=== PATIENT | male | born 1950 | race Caucasian/White ===

== ENCOUNTER 2016-02-26 14:08 | Inpatient (IN) | payer MEDICARE, OTHER ==
--- NOTE | 2016-02-26 15:45 | ER Document Report ---
ED Medical Screen (RME) - General Chief Complaint: Weakness Stated Complaint: WEAKNESS Mode of Arrival: Wheelchair Information source: Patient, Relative Notes: Patient is complaining of decreased appetite and weakness that has been going on for the past 2 weeks but got worse over the past week. Endorses increased use of alcohol, last drink was last night. He denies any pain. Family endorses bowel incontinence, fatigue, decreased energy. Denies fever, chills, vomiting or urinary symptoms. He has not seen his regular doctor for this. He is taking his regular medications. TRAVEL OUTSIDE OF THE [place] IN LAST 30 DAYS: No - Related Data Allergies/Adverse Reactions: codeine Allergy (Verified 02/26/16 14:20) Review of Systems - Review of Systems Constitutional: See HPI Gastrointestinal: See HPI Physical Exam - Vital signs Vitals: Temp Pulse Resp BP 98.3 F 96 20 102/57 L 02/26/16 14:15 02/26/16 14:15 02/26/16 14:15 02/26/16 14:15 - Notes Notes: General: ill-appearing, generalized weak, cachectic. No respiratory distress. Course - Vital Signs Vital signs: Temp Pulse Resp BP Pulse Ox 98.3 F 96 20 102/57 L 02/26/16 14:15 02/26/16 14:15 02/26/16 14:15 02/26/16 14:15
[2016-02-26 16:40] LABS: APPEARANCE,URINE SLIGHTLY-CLOUDY; BILIRUBIN,URINE NEGATIVE (NEGATIVE); GLUCOSE, URINE NEGATIVE (NEGATIVE); KETONES,URINE NEGATIVE (NEGATIVE); LEUKOCYTE ESTERASE,URINE NEGATIVE (NEGATIVE); NITRITE,URINE NEGATIVE (NEGATIVE); PROTEIN,URINE 30 mg/dL (NEGATIVE); URINE SPECIFIC GRAVITY 1.023; UROBILINOGEN,URINE NEGATIVE mg/dL (<2.0)
[2016-02-26 16:41] LABS: HEMOGLOBIN 10.5 g/dL (13.5-17.0); HGB HCT DIFFERENCE 0.5; MEAN CORPUSCULAR HEMOGLOBIN 33.3 pg (27.0-33.4); MEAN CORPUSCULAR HGB CONC 33.9 g/dL (32.0-36.0); MEAN CORPUSCULAR VOLUME 98 fl (80-97); RED BLOOD COUNT 3.16 10^6/uL (4.35-5.55); RED CELL DISTRIBUTION WIDTH 13.1 % (11.5-14.0)
[2016-02-26 16:55] LABS: ALANINE AMINOTRANSFERASE 64 U/L (21-72); ALBUMIN 1.7 g/dL (3.5-5.0); ALKALINE PHOSPHATASE 191 U/L (38-126); ANION GAP 9 (5-19); ASPARTATE AMINO TRANSFERASE 80 U/L (17-59); BILIRUBIN,TOTAL 1.2 mg/dL (0.2-1.3); BLOOD UREA NITROGEN 13 mg/dL (7-20); CALCIUM 7.7 mg/dL (8.4-10.2); CARBON DIOXIDE 24 mmol/L (22-30); CHLORIDE 97 mmol/L (98-107); CREATININE RESULT 0.82 mg/dL (0.52-1.25); GLUCOSE 73 mg/dL (75-110); LIPASE 24.6 U/L (23-300); POTASSIUM 4.5 mmol/L (3.6-5.0); TOTAL PROTEIN 4.8 g/dL (6.3-8.2)
[2016-02-26 16:57] LABS: ALCOHOL < 10 mg/dL (NONE DETECTED)
[2016-02-26 17:30] LABS: BAND NEUTROPHILS % (MANUAL) 6 % (3-5); BASOPHILS % (MANUAL) 0 % (0-2); EOSINOPHILS % (MANUAL) 0 % (0-6); LYMPHOCYTES % (MANUAL) 4 % (13-45); TOTAL CELLS COUNTED 100
[2016-02-26 17:36] LABS: TARGET CELLS SLIGHT; TOXIC GRANULATION SLIGHT
[2016-02-26] MEDS ORDERED: NORMAL SALINE 1000 ML 1,000 ML IV ONE ×2 (19:41→20:45)
--- NOTE | 2016-02-26 19:44 | ER Document Report ---
ED General - General Chief Complaint: Weakness Stated Complaint: WEAKNESS Time seen by provider: 19:42 Mode of Arrival: Wheelchair Notes: Patient is a 65-year-old male that comes emergency department for chief complaint of weakness, vomiting every time he eats with generalized pain in the abdomen, white states he is so weak he cannot stand up in the shower without assistance, patient has been worsening for weeks but is much worse since yesterday, patient states over the past 6 months has lost 50 pounds. Patient drinks regular alcohol, mainly wine. Patient states he is cold all the time, unsure if he is having fevers, reports some coughing which is nonproductive. Patient smokes tobacco irregularly. Past medical history is limited including hypertension, gastritis with Zantac use, and distant hernia repair. TRAVEL OUTSIDE OF THE [place] IN LAST 30 DAYS: No - Related Data Allergies/Adverse Reactions: aspirin Adverse Reaction (Verified 02/26/16 23:43) GI distress codeine Adverse Reaction (Verified 02/26/16 23:43) Syncope Home Medications: Current Home Medications Bisoprolol Fumarate/Hctz [Bisoprolol-Hctz 10-6.25 mg Tab] 1 tab PO DAILY [History] Ranitidine HCl 1 tab PO BID 02/27/16 [History] Past Medical History - General Information source: Patient, Relative - Social History Smoking Status: Current Every Day Smoker Frequency of alcohol use: Heavy Lives with: Family Family History: Reviewed & Not Pertinent - Past Medical History Cardiac Medical History: Reports: Hx Hypertension GI Medical History: Reports: Hx Gastritis Review of Systems - Review of Systems Constitutional: See HPI EENT: No symptoms reported Cardiovascular: No symptoms reported Respiratory: See HPI Gastrointestinal: See HPI Genitourinary: No symptoms reported Male Genitourinary: No symptoms reported Musculoskeletal: No symptoms reported Skin: No symptoms reported Hematologic/Lymphatic: No symptoms reported Neurological/Psychological: See HPI Physical Exam - Vital signs Vitals: Temp Pulse Resp BP 98.3 F 96 20 102/57 L 02/26/16 14:15 02/26/16 14:15 02/26/16 14:15 02/26/16 14:15 Interpretation: Normal - General General appearance: Other - Patient thin, somewhat chronically ill-appearing - HEENT Head: Normocephalic, Atraumatic Eyes: Normal Conjunctiva: Normal Extraocular movements intact: Yes Eyelashes: Normal Pupils: PERRL Mucous membranes: Dry Pharynx: Normal - Respiratory Respiratory status: No respiratory distress Chest status: Nontender Breath sounds: Decreased air movement, Nonproductive cough, Other - Coarse breath sounds and a few rhonchi bilaterally - Cardiovascular Rhythm: Regular. No: Tachycardia Heart sounds: Normal auscultation, S1 appreciated, S2 appreciated Murmur: No - Abdominal Inspection: Normal Distension: No distension Bowel sounds: Normal Tenderness: Tender - Very mild generalized tenderness, nonspecific with no guarding Organomegaly: No organomegaly - Back Back: Normal, Nontender - Extremities General upper extremity: Normal inspection, Nontender, Normal color, Normal ROM , Normal temperature General lower extremity: Normal inspection, Nontender, Normal color, Normal ROM , Normal temperature, Normal weight bearing. No: Monet's sign - Neurological Neuro grossly intact: Yes Cognition: Normal Orientation: AAOx4 [place] Coma Scale Eye Opening: Spontaneous [place] Coma Scale Verbal: Oriented Mark[place] Coma Scale Motor: Obeys Commands Markus Coma Scale Total: 15 Speech: Normal Motor strength normal: LUE, RUE, LLE, RLE Sensory: Normal - Psychological Associated symptoms: Normal affect, Normal mood - Skin Skin Temperature: Warm Skin Moisture: Dry Skin Color: Normal Course - Re-evaluation Re-evalutation: Patient generally unwell appearing, mildly hypotensive, coarse breath sounds with coughing, chief complaint is weakness. Patient also complains of difficulty with eating, states he frequently vomits after eating, states suspect this is gastritis related secondary to alcohol abuse, abdomen is unremarkable on examination, LFTs and lipase are unremarkable, bilirubin is unremarkable. Leukocytosis at 20.3 with elevation of neutrophils and 6 bands. Chest x-ray is suggestive of pneumonia. Patient was given 2 L boluses of saline, started azithromycin and Rocephin. Lactic acid, venous blood gas both unremarkable, blood cultures pending. Discussed with Dr. Taylor, patient will be admitted to [facility]. - Vital Signs Vital signs: Temp Pulse Resp BP Pulse Ox 98.4 F 104 H 18 94/59 L 91 L 02/27/16 03:33 02/27/16 03:33 02/27/16 03:33 02/27/16 03:33 02/27/16 03:33 - Laboratory Result Diagrams: 02/26/16 16:11 01/02/17 16:11 Laboratory results interpreted by me: 02/26/16 02/26/16 02/26/16 15:56 16:11 16:11 WBC 20.0 H RBC 3.16 L Hgb 10.5 L Hct 31.0 L MCV 98 H Seg Neuts % (Manual) 89 H Band Neutrophils % 6 H Lymphocytes % (Manual) 4 L Monocytes % (Manual) 0 L Abs Neuts (Manual) 19.0 H Abs Monocytes (Manual) 0.0 L Sodium 130.0 L Chloride 97 L Glucose 73 L Calcium 7.7 L AST 80 H Alkaline Phosphatase 191 H Creatine Kinase Total Protein 4.8 L Albumin 1.7 L Urine Protein 30 H Urine Blood LARGE H 02/26/16 21:29 WBC RBC Hgb Hct MCV Seg Neuts % (Manual) Band Neutrophils % Lymphocytes % (Manual) Monocytes % (Manual) Abs Neuts (Manual) Abs Monocytes (Manual) Sodium Chloride Glucose Calcium AST Alkaline Phosphatase Creatine Kinase 41 L Total Protein Albumin Urine Protein Urine Blood Discharge - Discharge Clinical Impression: Weakness, Cough Leukocytosis Qualifiers: Leukocytosis type: unspecified Qualified Code(s): D72.829 - Elevated white blood cell count, unspecified Pneumonia Qualifiers: Pneumonia type: due to unspecified organism Laterality: unspecified laterality Lung location: unspecified part of lung Qualified Code(s): J18.9 - Pneumonia, unspecified organism Disposition: ADMITTED INPATIENT Admitting Provider: Hospitalist - Dr. Taylor Unit Admitted: [facility]
[2016-02-26] MEDS ORDERED: AZITHROMYCIN INJ 500 MG VIAL IV ONE (21:05)
[2016-02-26] MEDS ORDERED: CEFTRIAXONE 1 GM/D5W RTU 50 ML IV ONE (21:05)
[2016-02-26 21:48] LABS: VENOUS BLOOD BASE EXCESS -1.2 mmol/L; VENOUS BLOOD HCO3 23.3 mmol/L (20-32); VENOUS BLOOD PCO2 38.4 mmHg (35-63); VENOUS BLOOD PH 7.4 (7.30-7.42)
[2016-02-26 22:08] LABS: LIPASE 26.9 U/L (23-300)
[2016-02-26 22:19] LABS: CREATINE KINASE MB 0.69 ng/mL (<4.55)
[2016-02-26 22:20] LABS: TROPONIN I < 0.012 ng/mL
[2016-02-26] MEDS ORDERED: THIAMINE HCL 100 MG TABLET PO ONE (23:00)
[2016-02-26] MEDS ORDERED: NICOTINE 21 MG/24 HR PATCH.TD24 TD PRN (23:30)
[2016-02-26] MEDS ORDERED: GUAIFENESIN SYRP 200 MG/10 ML UDC PO PRN (23:31)
[2016-02-26] MEDS ORDERED: IPRATROPIUM/ALBUTEROL 0.5-2.5 MG/3 ML AMPUL NEB PRN (23:31)
[2016-02-26] MEDS ORDERED: ACETAMINOPHEN 325 MG TABLET PO PRN (23:36)
--- NOTE | 2016-02-26 23:55 | PDOC H&P ---
History of Present Illness Admission Date/PCP: 02/26/16 22:30 Eloy BARRON Medical Patient complains of: weakness, cough History of Present Illness: TRE THORPE is a 65 year old male, pack-a-day smoker, marijuana use most days, six-pack of beer most days, along with approximately 1 bottle of wine most days, but without known underlying chronic pulmonary disease, who presents to the emergency room for evaluation of above complaints. . Patient has been discussed with emergency room physician who evaluated the patient. Patient describes a several day history of slowly progressive generalized weakness, nausea with dry heaves and positive chills, although no fever per se. Also describes a persistent cough whenever he lies flat. Some abdominal discomfort, but not a lot. Weakness has progressed to the point where he cannot stand up in the shower without assistance. No ankle swelling. No history of congestive heart failure. No previous [place], pulmonary embolus, or DVT. Negative heart catheterization approximately 5 years ago at [facility], per patient. Denies diarrhea or dysuria. Describes an unintentional 50 pound weight loss over the past 6 months. Laboratory results are listed in [employer] and are reviewed. X-ray summary results are listed below, with full report(s) reviewed. . EKG reviewed . No old EKG available for comparison. Social history/personal habits: Single. No children. Retired. Has a female significant other, his roommate, Patti Castillo, who is at his side with his approval, along with a female alternative medicine practitioner of hers. Personal habits as noted above. Family History : Brother with prostate cancer. Father of alcoholism. Mother of Alzheimer's disease. Allergies/adverse reactions are listed in [employer] and are reviewed. Home medications are reviewed by bottle review and discussion with patient and are to be reconciled by nursing staff in [facility]. Currently his only chronic medication is Bisoprolol HCT 5-6.25, 1 a day. Home medications initially autopopulated into [employer] may not accurately reflect patient's true medications, dosages, and/or frequencies. Compliant with medications. REVIEW OF SYSTEMS: Constitutional: Subjective chills. Eyes: No current vision complaints. ENT: No swallowing problems or complaints. No hearing problems or complaints. Pulmonary: See history and present illness. Cardiovascular: No current complaints, including chest pain. Gastrointestinal: See history and present illness. Skin: No current complaints, including rashes. Hematologic: Easy bruising. Neurologic: No current complaints, including numbness or tingling. Musculoskeletal: No current complaints, including painful joints. Psychiatric: No current complaints, including anxiety or depression. Endocrine: No current complaints, including polyuria. Genitourinary: No current complaints, including dysuria. PHYSICAL EXAMINATION: 51.7 kg. Height is not recorded on the chart. Blood pressure 100/67. Pulse 91 and regular. 96% saturation on room air. Respirations are 18 and unlabored. Temperature 98.3. Thin almost emaciated somewhat chronically ill-appearing male who appears a number of years older than his stated age. Pleasant awake alert and cooperative. No obvious distress other than somewhat anxious. Skin is warm and dry. No grossly obvious evidence of rash in areas of skin examined. No subcutaneous nodules palpated. ENT: Hearing grossly normal to normal conversation. Tongue midline on protrusion pink and slightly tacky Eyes: No scleral icterus. Pupils equal and reactive to light at 4 mm. Eland conjunctivae. Neck is supple and nontender to gentle active range of motion and palpation. Midline trachea. No palpable thyroid nodule mass enlargement or tenderness. Lymphatic: No palpable cervical or clavicular nodes. Psychiatric: Fair to reasonable insight into acute and chronic medical issues. Oriented to time location and why here. Lungs: Auscultation reveals clear and equal breath sounds bilaterally. No use of accessory respiratory muscles. Cardiovascular: Heart regular rate and rhythm, without gallop murmur or rub. No carotid or abdominal aortic bruits. No ankle or pedal edema. Faintly palpable dorsalis pedis pulses. Abdomen: soft, , perhaps slightly distended nontender with positive bowel sounds. What feels to be moderate-sized area of right upper quadrant fullness to palpation. Unable to adequately examine remainder of abdomen for masses organomegaly due to his distention. Extremities: Feet are warm and dry. No calf tenderness to compression. No grossly obvious visual evidence of calf swelling. Gentle manipulation of lower extremities fails to reveal any obvious evidence of injury or instability to knees hips or ankles. Neurologic: Moves upper extremities grossly normally. Patellar reflexes absent. Absent Babinski. Light touch is intact at feet. Dorsiflexion and plantarflexion of feet 5 / 5 and symmetric. Past Medical History Cardiac Medical History: Reports: Hypertension Denies: Congestive Heart Failure, DVT, Myocardial Infarction, Hyperlipidema, Pulmonary Embolism Pulmonary Medical History: Denies: Asthma, Chronic Obstructive Pulmonary Disease (COPD) EENT Medical History: Denies: Eyes, Ears, Throat Endocrine Medical History: Denies: Diabetes Mellitus Type 1, Diabetes Mellitus Type 2, Hyperthyroidism, Hypothyroidism Renal/ Medical History: Reports: None Musculoskeltal Medical History: Denies: Arthritis Skin Medical History: Reports: None Denies: Eczema, Psoriasis Psychiatric Medical History: Reports: Alcohol Dependency, Substance Abuse, Tobacco Dependency Denies: Depression, General Anxiety Disorder Hematology: Reports: Other - Easy bruising Infectious Medical History: Denies: Hepatitis B, Hepatitis C Past Surgical History Past Surgical History: Reports: Appendectomy, Herniorrhaphy Social History Information Source: Patient, Friend, Emergency Med Personnel, [facility] Records Lives with: Spouse/Significant other Smoking Status: Current Every Day Smoker Frequency of Alcohol Use: Heavy Drugs: Marijuana - Advance Directive Resuscitation Status: Full Code Surrogate healthcare decision maker:: His roommate Patti Castillo Family History Parental Family History Reviewed: Yes Children Family History Reviewed: NA Sibling(s) Family History Reviewed.: Yes Medication/Allergy Home Medications: Bisoprolol Fumarate/Hctz [Bisoprolol-Hctz 10-6.25 mg Tab] PO DAILY 02/27/16 Levofloxacin [Levaquin 750 mg Tablet] 750 mg PO DAILY #8 tab 02/27/16 RX: Multivitamin [Tab-A-Max (Multiple Vitamin) Tablet] 1 tab PO DAILY #30 tablet 02/27/16 RX: Ranitidine HCl 1 tab PO BID 02/27/16 RX: Thiamine HCl [Thiamine 100 mg Tablet] 100 mg PO DAILY #30 tablet 02/27/16 Allergies/Adverse Reactions: aspirin Adverse Reaction (Verified 02/26/16 23:43) GI distress codeine Adverse Reaction (Verified 02/26/16 23:43) Syncope Physical Exam Vital Signs: Temp Pulse Resp BP Pulse Ox 98.3 F 96 20 102/57 L 02/26/16 14:15 02/26/16 14:15 02/26/16 14:15 02/26/16 14:15 Results Impressions: Chest X-Ray 02/26/16 19:40 IMPRESSION: Increased airspace markings in the right medial lung base, possible early consolidation. Assessment & Plan - Diagnosis (1) Abdominal fullness in right upper quadrant Is this a current diagnosis for this admission?: YesPlan: Abdominal ultrasound. (2) Anemia Qualifiers: Anemia type: unspecified type Qualified Code(s): D64.9 - Anemia, unspecified Is this a current diagnosis for this admission?: YesPlan: Patient not aware he is anemic. Basic anemia screening labs. Stool for occult blood. (3) Elevated LFTs Is this a current diagnosis for this admission?: YesPlan: Likely due to his underlying alcohol abuse. Follow-up chemistry. (4) Hyponatremia Is this a current diagnosis for this admission?: YesPlan: Mild. Likely due to his underlying alcohol abuse. Follow-up chemistry. (5) RLL pneumonia Qualifiers: Pneumonia type: due to unspecified organism Qualified Code(s): J18.1 - Lobar pneumonia, unspecified organism Is this a current diagnosis for this admission?: YesPlan: Patient will be admitted under pneumonia protocol. Incentive spirometry twice a day. PRN DuoNeb's. Antibiotics will consist of intravenous Zithromax and Rocephin. No antibiotics or hospitalization in the last 3 months. I strongly encouraged patient to notify staff should patient feel that respiratory status is worsening. Patient is a full code. I have strongly encouraged patient not to get out of bed without notifying staff , , to avoid a fall with injury. Knee high SCDs for DVT prophylaxis, along with subcutaneous Lovenox Impression and plans were discussed with patient, who concurs. Time spent in evaluation and management of patient: 70 minutes. (6) Weakness Is this a current diagnosis for this admission?: YesPlan: Physical therapy consult. Strongly encouraged patient not to get out of bed without notifying staff to avoid a fall with injury. (7) Alcohol abuse Is this a current diagnosis for this admission?: YesPlan: Daily multivitamin, thiamine, and folic acid. Observe closely for signs of withdrawal. (8) HTN (hypertension) Qualifiers: Hypertension type: essential hypertension Qualified Code(s): I10 - Essential (primary) hypertension Is this a current diagnosis for this admission?: YesPlan: Resume home medications as appropriate once these have been reviewed. (9) Marijuana use Is this a current diagnosis for this admission?: Yes (10) Tobacco dependency Is this a current diagnosis for this admission?: YesPlan: When necessary nicotine patch. (11) Weight loss, non-intentional Is this a current diagnosis for this admission?: YesPlan: Dietary consult. Probably at least partially due to his underlying alcohol abuse. Concern also for possible malignancy. - Inpatient Certification Based on my medical assessment, after consideration of the patient's comorbidities, presenting symptoms, or acuity I expect that the services needed warrant INPATIENT care.: Yes I certify that my determination is in accordance with my understanding of Medicare's requirements for reasonable and necessary INPATIENT services [42 CFR 412.3e].: Yes Medical Necessity: Need Close Monitoring Due to Risk of Patient Decompensation, Need For Continuous Telemetry Monitoring, Need for Nebulizer Therapy and Monitoring of Response, Need for IV Antibiotics, Risk of Complication if Not Cared For in Hospital Post Hospital Care: D/C or Transfer Summary
--- NOTE | 2016-02-27 | EKG REPORT ---
SEVERITY:- ABNORMAL ECG - SINUS RHYTHM LOW VOLTAGE IN FRONTAL LEADS BORDERLINE R WAVE PROGRESSION, ANTERIOR LEADS NONSPECIFIC T ABNORMALITIES, LATERAL LEADS : Confirmed by: Rudy Mccall 26-Feb-2016 23:59:10
[2016-02-27 00:09] LABS: URINE BARBITURATES SCREEN NEGATIVE; URINE METHADONE SCREEN NEGATIVE; URINE PHENCYCLIDINE SCREEN NEGATIVE
[2016-02-27] MEDS ORDERED: INFLUENZA ADLT QUAD (36MOS+) 2016-17 VAC 0.5 ML SYR IM PRN (02:32)
[2016-02-27] MEDS ORDERED: LORAZEPAM 1 MG TABLET PO PRN (03:46)
[2016-02-27] MEDS ORDERED: NORMAL SALINE 1000 ML 500 ML IV ONE (05:41)
[2016-02-27 06:53] LABS: ABSOLUTE LYMPHOCYTES (AUTO) 0.9 10^3/uL (0.5-4.7); ABSOLUTE MONOCYTES (AUTO) 0.8 10^3/uL (0.1-1.4); ABSOLUTE NEUT (AUTO) 11.5 10^3/uL (1.7-8.2); BASOPHILS % (AUTO) 0.1 % (0-2); HEMATOCRIT 25.1 % (37.9-51.0); HEMOGLOBIN 8.6 g/dL (13.5-17.0); HGB HCT DIFFERENCE 0.7; LYMPHOCYTES % (AUTO) 6.7 % (13-45); MEAN CORPUSCULAR HEMOGLOBIN 33.4 pg (27.0-33.4); MEAN CORPUSCULAR HGB CONC 34.1 g/dL (32.0-36.0); MEAN CORPUSCULAR VOLUME 98 fl (80-97); MONOCYTES % (AUTO) 6.4 % (3-13); RED BLOOD COUNT 2.57 10^6/uL (4.35-5.55); RED CELL DISTRIBUTION WIDTH 13.1 % (11.5-14.0); SEGMENTED NEUTROPHILS % (AUTO) 86.8 % (42-78); WHITE BLOOD COUNT 13.2 10^3/uL (4.0-10.5)
[2016-02-27 07:00] LABS: PARTIAL THROMBOPLASTIN TIME 35.3 SEC (23.5-35.8); PROTHROMBIN TIME 17.1 SEC (11.4-15.4)
[2016-02-27 07:03] LABS: ALANINE AMINOTRANSFERASE 58 U/L (21-72); ALBUMIN 1.2 g/dL (3.5-5.0); ALKALINE PHOSPHATASE 137 U/L (38-126); ANION GAP 7 (5-19); ASPARTATE AMINO TRANSFERASE 66 U/L (17-59); BILIRUBIN,TOTAL 0.8 mg/dL (0.2-1.3); BLOOD UREA NITROGEN 13 mg/dL (7-20); CARBON DIOXIDE 22 mmol/L (22-30); CHLORIDE 102 mmol/L (98-107); CREATININE RESULT 0.75 mg/dL (0.52-1.25); GLUCOSE 62 mg/dL (75-110); POTASSIUM 3.6 mmol/L (3.6-5.0); SODIUM 130.9 mmol/L (137-145); TOTAL PROTEIN 3.7 g/dL (6.3-8.2)
[2016-02-27] MEDS ORDERED: ENOXAPARIN SODIUM INJ 40 MG/0.4 ML DISP.SYRIN SUBCUT SCH (08:00)
[2016-02-27 08:09] LABS: FOLATE 5.84 ng/mL (>2.76)
[2016-02-27 08:28] LABS: CALCIUM 6.6 mg/dL (8.4-10.2)
[2016-02-27 08:48] VITALS: BP 80/47
[2016-02-27] MEDS ORDERED: CALCIUM GLUCONATE 2,000 MG in DEXTROSE 5%-WATER 100 ML IV ONE (09:45)
[2016-02-27] MEDS ORDERED: CEFTRIAXONE 1 GM/D5W RTU 50 ML IV SCH (10:00)
[2016-02-27] MEDS ORDERED: AZITHROMYCIN 500 MG in DEXTROSE 5%-WATER 250 ML IV SCH ×2 (10:00→22:00)
[2016-02-27] MEDS ORDERED: MULTIVITAMIN TABLET PO SCH (10:00)
[2016-02-27] MEDS ORDERED: THIAMINE HCL 100 MG TABLET PO SCH (10:00)
[2016-02-27] MEDS ORDERED: FOLIC ACID 1 MG TABLET PO SCH (10:00)
--- NOTE | 2016-02-27 13:00 | PDOC DISCHARGE SUMMARY ---
General - Admit/Disc Date/PCP Admission Date/Primary Care Provider: 02/26/16 23:31 EMILY REAGAN Discharge Date: 02/27/16 - signs AMA - Discharge Diagnosis (1) Hypocalcemia Is this a current diagnosis for this admission?: YesSummary: Corrected with a serum albumen the patient's calcium was 8.8 Vitamin D level were ordered (2) Hypoalbuminemia due to protein-calorie malnutrition Is this a current diagnosis for this admission?: YesSummary: Hypoalbuminemia secondary to severe liver disease and protein calorie malnutrition (3) Chronic liver disease Is this a current diagnosis for this admission?: YesSummary: Secondary to chronic alcohol abuse Fatty liver was seen on ultrasound (4) Chronic alcohol abuse Is this a current diagnosis for this admission?: YesSummary: Patient did not withdraw during his short stay (5) Hematuria Is this a current diagnosis for this admission?: YesSummary: There was large blood on UA The etiology of hematuria is unclear (6) Anemia Is this a current diagnosis for this admission?: YesSummary: Anemia of chronic disease likely secondary to chronic liver disease and Anemia secondary to hematuria (7) RLL pneumonia Is this a current diagnosis for this admission?: YesSummary: Patient presented with leukocytosis in the right lower lobe infiltrate He was treated on admission with ceftriaxone and Zithromax - Additional Information Resuscitation Status: Full Code Home Medications: Bisoprolol Fumarate/Hctz [Bisoprolol-Hctz 10-6.25 mg Tab] PO DAILY 02/27/16 Levofloxacin [Levaquin 750 mg Tablet] 750 mg PO DAILY #8 tab 02/27/16 Multivitamin [Tab-A-Max (Multiple Vitamin) Tablet] 1 tab PO DAILY #30 tablet Ranitidine HCl 1 tab PO BID 02/27/16 Thiamine HCl [Thiamine 100 mg Tablet] 100 mg PO DAILY #30 tablet 02/27/16 History of Present Illness Patient complains of: cough weakness History of Present Illness: TRE THORPE is a 65 year old male pack-a-day smoker, marijuana use most days, six-pack of beer most days, along with approximately 1 bottle of wine most days, but without known underlying chronic pulmonary disease, who presents to the emergency room for evaluation of above complaints. Patient describes a several day history of slowly progressive generalized weakness, nausea with dry heaves and positive chills, although no fever per se. Also describes a persistent cough whenever he lies flat. Some abdominal discomfort, but not a lot. Weakness has progressed to the point where he cannot stand up in the shower without assistance. Describes an unintentional 50 pound weight loss over the past 6 months. Hospital Course Hospital Course: Patient was admitted overnight Next morning patient stated that he did not want to remain in the hospital and wished to go home Patient was advised to stay in the hospital for treatment of his anemia , chronic liver disease, pneumonia and severe hypoalbuminemia patient signs AMA Patient is alert , awake, oriented and competent to make his own decisions Patient was given prescriptions for Levaquin 750 mg by mouth daily, multivitamin one day, and thiamine 100 mg by mouth daily Physical Exam Vital Signs: Temp Pulse Resp BP Pulse Ox 99.2 F 92 20 80/47 L 97 02/27/16 07:36 02/27/16 07:36 02/27/16 07:36 02/27/16 07:36 02/27/16 07:36 Intake & Output 02/26/16 02/27/16 02/28/16 00:59 00:59 00:59 Intake Total 0 Output Total 0 Balance 0 Weight 55.5 kg General appearance: PRESENT: no acute distress, cooperative, thin, other - Under nourished looks chronically ill Head exam: PRESENT: atraumatic, normocephalic Eye exam: PRESENT: conjunctiva pale Neck exam: ABSENT: carotid bruit, JVD, lymphadenopathy, thyromegaly Respiratory exam: PRESENT: clear to auscultation toño. ABSENT: rales, rhonchi, wheezes Cardiovascular exam: PRESENT: RRR. ABSENT: diastolic murmur, rubs, systolic murmur Pulses: PRESENT: normal dorsalis pedis pul GI/Abdominal exam: PRESENT: normal bowel sounds, soft. ABSENT: distended, guarding, mass, organolmegaly, rebound, tenderness Extremities exam: ABSENT: calf tenderness, clubbing, full ROM, joint swelling, pedal edema, tenderness, +1 edema, +2 edema, other Musculoskeletal exam: ABSENT: ambulatory, deformity, dislocation, full ROM, normal inspection, tenderness, other Neurological exam: PRESENT: alert, awake, oriented to person, oriented to place , oriented to time, oriented to situation, CN II-XII grossly intact. ABSENT: motor sensory deficit Skin exam: PRESENT: dry, intact, warm. ABSENT: cyanosis, rash Results Laboratory Results: 02/27/16 06:10 02/27/16 06:10 02/27/16 02/27/16 02/27/16 06:10 06:10 06:10 WBC 13.2 H RBC 2.57 L Hgb 8.6 L Hct 25.1 L MCV 98 H MCH 33.4 MCHC 34.1 RDW 13.1 Plt Count 119 L Seg Neutrophils % 86.8 H Lymphocytes % 6.7 L Monocytes % 6.4 Eosinophils % 0.0 Basophils % 0.1 Absolute Neutrophils 11.5 H Absolute Lymphocytes 0.9 Absolute Monocytes 0.8 Absolute Eosinophils 0.0 Absolute Basophils 0.0 Retic Count (auto) 1.72 Absolute Retic 0.044 Sodium 130.9 L Potassium 3.6 Chloride 102 Carbon Dioxide 22 Anion Gap 7 BUN 13 Creatinine 0.75 Est GFR ( Amer) > 60 Est GFR (Non-Af Amer) > 60 Glucose 62 L Calcium 6.6 L* Iron 26 L TIBC 90 L % Saturation 29 Ferritin 1050.00 H Total Bilirubin 0.8 AST 66 H ALT 58 Alkaline Phosphatase 137 H Total Protein 3.7 L Albumin 1.2 L 1.2 L Vitamin B12 853.0 Folate 5.84 Impressions: Chest X-Ray 02/26/16 19:40 IMPRESSION: Increased airspace markings in the right medial lung base, possible early consolidation. Abdomen Ultrasound 02/27/16 00:00 IMPRESSION: Fatty liver Contracted gallbladder with gallstones. No gallbladder wall thickening or immediate pericholecystic fluid worrisome for cholecystitis Limited visualization of the spleen and left kidney Plan Discharge Plan: Signs AMA Time Spent: Less than 30 Minutes
[2016-02-28 07:11] LABS: VITAMIN D 25-HYDROXY 27.8 ng/mL (30.0-100.0)
[2016-02-28 13:54] LABS: VITAMIN D 1,25 DIHYDROXY 19.6 pg/mL (19.9-79.3)
== END 2016-02-27 13:30 | disposition left against medical advice (07) | DRG 640 ==
LOC: ER 14:08 → UNDOADMIN 22:30 → EH 22:30 → 5 02-27 01:50
PROVIDERS: ADMIT Family Medicine; ATTEND Family Medicine
DX: E83.51 Hypocalcemia (principal); J18.1 Lobar pneumonia, unspecified organism; E46 Unspecified protein-calorie malnutrition; E87.1 Hypo-osmolality and hyponatremia; Z68.1 Body mass index [BMI] 19.9 or less, adult; K70.0 Alcoholic fatty liver; F10.20 Alcohol dependence, uncomplicated; R31.9 Hematuria, unspecified; I10 Essential (primary) hypertension; D63.8 Anemia in other chronic diseases classified elsewhere; K80.20 Calculus of gallbladder without cholecystitis without obstruction; F17.210 Nicotine dependence, cigarettes, uncomplicated; F12.10 Cannabis abuse, uncomplicated; Z80.42 Family history of malignant neoplasm of prostate; Z81.1 Family history of alcohol abuse and dependence; Z82.0 Family history of epilepsy and other diseases of the nervous system; Y90.9 Presence of alcohol in blood, level not specified
CPT/HCPCS: 36415; 71020; 76700; 80053; 80307; 81001; 82040; 82306; 82550; 82553; 82607; 82652; 82728; 82746; 82803; 83540; 83550; 83605; 83690; 83735; 84443; 84466; 84484; 85025; 85045; 85610; 85730; 87040; 87070; 87077; 87186; 87205; 87804; 93005; 93010; 93976; 96365; 99285; J0456; J0610; J0696; J7030

== ENCOUNTER 2016-05-03 10:47 | Emergency (ER) | payer MEDICAID, MEDICARE ==
[2016-05-03] MEDS ORDERED: NORMAL SALINE 1000 ML 1,000 ML with POTASSIUM CHLORIDE 20 MEQ, MAGNESIUM SULFATE 8 MEQ,... IV PRN ×5 (11:19)
--- NOTE | 2016-05-03 11:41 | ER Document Report ---
ED General - General Chief Complaint: ETOH Abuse Stated Complaint: WEAKNESS Mode of Arrival: Medic Information source: Patient, Friend Notes: This is a 65-year-old male with a history of chronic alcoholism who presents with generalized weakness and desire for detox. His significant other states that he became so weak this morning that she had to help him ease down to the floor in the bathroom. He did not have a syncopal episode, he did not fall, and he did not hit his head. However he was so weak that she was unable to get him up off the floor until EMS was notified. The patient states that he is ready to seek help for his alcoholism. At this time he admits to drinking 1-2 quarts of wine per day. He has been drinking daily for over 25 years. He denies any history of alcohol withdrawal however he has never gone without alcohol for any significant amount of time and more than 20 years. Of note he was recently admitted to this facility February 25 for pneumonia at which time he signed out the next day AGAINST MEDICAL ADVICE. He continues to endorse daily cough with sputum production and generalized weakness. He denies any fevers. He has not had vomiting or dysuria. He does suffer from constipation and last bowel movement was 3 days ago. His last drink of alcohol was at about 5 AM this morning. TRAVEL OUTSIDE OF THE [place] IN LAST 30 DAYS: No - Related Data Allergies/Adverse Reactions: aspirin Adverse Reaction (Verified 05/03/16 11:26) GI distress codeine Adverse Reaction (Verified 05/03/16 11:26) Syncope Past Medical History - General Information source: Patient, Friend - Social History Smoking Status: Current Every Day Smoker Chew tobacco use (# tins/day): No Frequency of alcohol use: Heavy Drug Abuse: Marijuana Family History: Reviewed & Not Pertinent Patient has suicidal ideation: No Patient has homicidal ideation: No - Past Medical History Cardiac Medical History: Reports: Hx Hypertension Denies: Hx Congestive Heart Failure, Hx DVT, Hx Heart Attack, Hx Hypercholesterolemia, Hx Pulmonary Embolism Pulmonary Medical History: Reports: Hx Pneumonia Denies: Hx Asthma, Hx COPD Endocrine Medical History: Denies: Hx Diabetes Mellitus Type 1, Hx Diabetes Mellitus Type 2, Hx Hyperthyroidism, Hx Hypothyroidism Renal/ Medical History: Denies: Hx Peritoneal Dialysis GI Medical History: Reports: Hx Gastritis Musculoskeltal Medical History: Denies Hx Arthritis Skin Medical History: Denies Hx Eczema, Denies Hx Psoriasis Psychiatric Medical History: Denies: Hx Depression Past Surgical History: Reports: Hx Appendectomy, Hx Herniorrhaphy Review of Systems - Review of Systems Notes: REVIEW OF SYSTEMS: CONSTITUTIONAL : Denies fever, chills, or sweats. Significant weight loss over the past year. EENT: Denies eye, ear, throat, or mouth pain or symptoms. Denies nasal or sinus congestion. CARDIOVASCULAR: Denies chest pain. RESPIRATORY: Chronic cough. Denies shortness of breath, difficulty breathing, or wheezing. GASTROINTESTINAL: Denies abdominal pain. Denies nausea, vomiting, or diarrhea. Constipation as per history of present illness GENITOURINARY: Denies difficulty urinating, painful urination, burning, frequency, or blood in urine. MUSCULOSKELETAL: Denies neck or back pain or joint pain or swelling. SKIN: Rash to bilateral feet. HEMATOLOGIC : Endorses easy bruising LYMPHATIC: Denies swollen, enlarged glands. NEUROLOGICAL: Denies altered mental status or loss of consciousness. Denies headache. PSYCHIATRIC: Denies anxiety or stress or depression. ALL OTHER SYSTEMS REVIEWED AND NEGATIVE. Physical Exam - Vital signs Vitals: Temp Pulse Resp BP Pulse Ox 97.2 F 80 16 105/72 97 05/03/16 11:03 05/03/16 11:03 05/03/16 11:03 05/03/16 11:03 05/03/16 11:03 - Notes Notes: PHYSICAL EXAMINATION: GENERAL: Chronically ill appearing adult male. He is cachectic. He is conversant and in no acute distress at this time. HEAD: Atraumatic, normocephalic. EYES: Pupils equal round and reactive to light, extraocular movements intact, mild scleral icterus ENT: nares patent, oropharynx clear without exudates. Mucous membranes dry NECK: Normal range of motion, supple without lymphadenopathy LUNGS: Decreased breath sounds bilateral bases without wheezes or rales or rhonchi. HEART: Regular rate and rhythm without murmurs ABDOMEN: Soft, nontender, normoactive bowel sounds. No guarding, no rebound. Hepatomegaly. EXTREMITIES: Normal range of motion. 2+ pitting edema bilateral lower extremities which is symmetric. dusky appearance to toes bilaterally, worse on right, with line of erythematous demarcation to dorsal mid foot on right. Decreased sensation to bilateral feet. No pulses palpable to DP bilaterally. Faint R femoral pulse palpated. NEUROLOGICAL: Cranial nerves grossly intact. Normal speech. No gross focal motor or sensory deficits appreciated. PSYCH: Normal mood, flat affect. SKIN: Warm, Dry, multiple areas of bruising and ecchymosis on extremities. Course - Re-evaluation Re-evalutation: 05/03/16 14:31 Initial plan was to admit patient here for alcohol detox. Dr Nice was consulted for admission. Given the vascular changes in the lower extremities however, patient requires evaluation from vascular surgery which is not available here. Of note patient does state that these changes have been going on for at least the past week. This is not what prompted his visit today... As today his long-term girlfriend finally convinced him to get help for his alcoholism, which prompted his presentation to the ER after his fall today. Will obtain Doppler ultrasound and proceed with transfer. Patient and family comfortable with this plan. 05/03/16 15:05 I discussed the case with vascular surgeon at [facility]. We discussed the history and physical exam and at this time he agrees that this is more consistent with a chronic but worsening ischemia rather than any acute ischemic limb. Patient is having no rest pain. Ultrasound is pending. Also at this time our lab coagulation machine is down and we are unable to obtain a PT or INR. With the patient's history of alcoholism I have not started heparin on him without knowing his PT and INR. I discussed this with the vascular surgeon and he was in agreement at this time. We will proceed with discussing the case with the hospitalist at [facility] , proceed with ultrasound report, and proceed with transfer. 05/03/16 15:27 Discussed with , resident at [facility], who accepts patient to the PCU under Dr. Spain, once a bed becomes available. 05/03/16 16:28 Coag results are now available. PT and INR within normal limits. Heparin bolus and drip initiated. 05/03/16 18:[address] Lopez again regarding the ultrasound results. We discussed the heparin treatment and fact that a bed should be available at [facility]. We will proceed with transfer when bed becomes available. 05/03/16 21:46 Pt's bp continues to drop, currently 75/49 although pt has normal mentation. He has no current complaints other than feeling cold. No abdominal pain. No chest pain. Rectal exam done, light brown stool and no gross blood. Will place central line and start pressers if BP not responding to additional fluid bolus. Discussed with asphalt paving foreman at [facility] Dr. Nowak who recommends continued search for cause of hypotension and accepts transfer once bed does become available at [facility]> 05/03/16 22:57 R femoral vein cannulated on first attempt, but unable to thread wire, and then hematoma developed so pressure held for 10 minutes. Pressure responding to IV fluids with SBP 92. Will hold off on further attempts at central line at this point and continue IV bolus, with plan to start dopamine peripherally if needed. Awaiting CBC results to discuss with [facility] for transfer. 05/04/16 00:[address] Jarvis at [facility] again. No bed available tonight, and he recommends seeking transfer at another facility. Discussed with asphalt paving foreman Dr. Johnson at [facility]... we discussed exam, vitals, response to fluid resuscitation. He recommends one more liter of NS, pain meds , and to call him back. He recommends no Dopamine at this time. We discussed the fact that pt is demanding pain medication secondary to L inguinal pain, or he is threatening to leave. I will order Fentanyl 25 mcg IV given tenuous BP. 05/04/16 00:49 Pt now demanding to leave AMA. This has been his pattern in the past. He states that he is leaving, and he understands his risk of or loss of limb. He is not staying. I spent over 30 minutes discussing his results and diagnosis, and his need for IV fluid, antibiotics, and vascular surgery consult. He states that he is leaving and that there is no way that I can convince him to stay. I discussed the case with his girlfriend Ms Castillo (with patients permission) and she spoke with him via phone and urged him to stay for treatment. However, pt remains adamant that he is leaving. Multiple times he voices understanding of the very likely possibility of loss of limb and or loss of his life. He states that his girlfriend is the one that really wanted him to get help in the first place, and he has changed his mind. I attempted to convince him to stay for antibiotics and pain medication and then see how he felt, but he is adamant and states I cannot change his mind. He is alert and oriented x4 and is competent and has the capacity to make this decision for himself at this time. An AMA form was signed. - Vital Signs Vital signs: Temp Pulse Resp BP Pulse Ox 97.2 F 80 20 87/64 L 100 05/03/16 11:03 05/03/16 11:03 05/04/16 00:50 05/04/16 00:51 05/03/16 19:48 - Laboratory Result Diagrams: 05/03/16 22:57 05/03/16 11:45 Laboratory results interpreted by me: 05/03/16 05/03/16 05/03/16 11:45 11:45 22:57 WBC 13.0 H 15.7 H RBC 3.38 L 2.80 L Hgb 11.2 L 9.0 L D Hct 33.2 L 27.7 L MCV 98 H 99 H RDW 14.4 H 14.8 H Plt Count 123 L 95 L Seg Neutrophils % 91.1 H Seg Neuts % (Manual) 86 H Band Neutrophils % 10 H Lymphocytes % 5.2 L Lymphocytes % (Manual) 1 L Monocytes % 2.4 L Absolute Neutrophils 11.8 H Abs Neuts (Manual) 15.2 H Abs Lymphs (Manual) 0.0 L PT APTT Sodium 135.8 L Carbon Dioxide 21 L BUN 33 H Creatinine 1.56 H Est GFR ( Amer) 54 L Est GFR (Non-Af Amer) 45 L Glucose 116 H Lactic Acid Alkaline Phosphatase 162 H Total Protein 5.1 L Albumin 2.1 L 05/03/16 05/03/16 22:57 22:57 WBC RBC Hgb Hct MCV RDW Plt Count Seg Neutrophils % Seg Neuts % (Manual) Band Neutrophils % Lymphocytes % Lymphocytes % (Manual) Monocytes % Absolute Neutrophils Abs Neuts (Manual) Abs Lymphs (Manual) PT 20.2 H APTT > 134.0 H* D Sodium Carbon Dioxide BUN Creatinine Est GFR ( Amer) Est GFR (Non-Af Amer) Glucose Lactic Acid 4.2 H Alkaline Phosphatase Total Protein Albumin Procedures - Central Line R femoral Consent obtained: Yes Central line pre-insertion: Sterile PPE donned, Betadine prep applied, Chloraprep applied, Sterile drapes applied Central line size (Fr.): 7 Central line lumen type: Triple Anesthetic type: 1% Lidocaine mL's of anesthesia: 2 Ultrasound guided: No Number of attempts: 1 - hematoma developed, pressure held, hematoma resolved Complications: Yes - R femoral vein cannulated on first attempt, but unable to thread wire. Critical Care Note - Critical Care Note Total time excluding time spent on procedures (mins): 45 - minutes of critical care time spent in direct contact evaluating and reevaluating the patient, treating symptoms, reviewing labs and studies and speaking with family and consultants excluding any procedures Discharge - Discharge Clinical Impression: Chronic alcoholism, Weakness, Acute kidney injury, Ischemia of right lower extremity Condition: Serious Disposition: AGAINST MEDICAL ADVICE
[2016-05-03 12:13] LABS: ABSOLUTE BASOPHILS # (AUTO) 0.2 10^3/uL (0.0-0.2); ABSOLUTE LYMPHOCYTES (AUTO) 0.7 10^3/uL (0.5-4.7); ABSOLUTE MONOCYTES (AUTO) 0.3 10^3/uL (0.1-1.4); ABSOLUTE NEUT (AUTO) 11.8 10^3/uL (1.7-8.2); BASOPHILS % (AUTO) 1.3 % (0-2); HEMATOCRIT 33.2 % (37.9-51.0); HEMOGLOBIN 11.2 g/dL (13.5-17.0); HGB HCT DIFFERENCE 0.4; LYMPHOCYTES % (AUTO) 5.2 % (13-45); MEAN CORPUSCULAR HGB CONC 33.6 g/dL (32.0-36.0); MEAN CORPUSCULAR VOLUME 98 fl (80-97); MONOCYTES % (AUTO) 2.4 % (3-13); RED BLOOD COUNT 3.38 10^6/uL (4.35-5.55); RED CELL DISTRIBUTION WIDTH 14.4 % (11.5-14.0); SEGMENTED NEUTROPHILS % (AUTO) 91.1 % (42-78)
[2016-05-03 12:24] LABS: PARTIAL THROMBOPLASTIN TIME 26.6 SEC (23.5-35.8)
[2016-05-03 12:38] LABS: ALANINE AMINOTRANSFERASE 43 U/L (21-72); ALBUMIN 2.1 g/dL (3.5-5.0); ALKALINE PHOSPHATASE 162 U/L (38-126); ANION GAP 12 (5-19); ASPARTATE AMINO TRANSFERASE 42 U/L (17-59); BLOOD UREA NITROGEN 33 mg/dL (7-20); CALCIUM 8.4 mg/dL (8.4-10.2); CARBON DIOXIDE 21 mmol/L (22-30); CHLORIDE 103 mmol/L (98-107); CREATININE RESULT 1.56 mg/dL (0.52-1.25); GLUCOSE 116 mg/dL (75-110); LIPASE 24.6 U/L (23-300); POTASSIUM 4.1 mmol/L (3.6-5.0); SODIUM 135.8 mmol/L (137-145); TOTAL PROTEIN 5.1 g/dL (6.3-8.2)
[2016-05-03 12:40] LABS: ALCOHOL < 10 mg/dL (NONE DETECTED)
[2016-05-03 15:28] LABS: PROTHROMBIN TIME 14.9 SEC (11.4-15.4)
[2016-05-03] MEDS ORDERED: DEXTROSE 5%-1/2 NORMAL SALINE 1,000 ML IV ONE (15:41)
[2016-05-03] MEDS ORDERED: HEPARIN SOD (PORCINE) 1,000 UNIT/ML 10 ML VIAL IV ONE ×2 (16:25→16:26)
[2016-05-03] MEDS ORDERED: HEPARIN SODIUM,PORCINE/D5W 250 ML IV PRN (16:26)
[2016-05-03] MEDS ORDERED: NORMAL SALINE 1000 ML 1,000 ML IV ONE ×4 (16:40→23:02)
--- NOTE | 2016-05-03 17:36 | XCELERA REPORT ---
[address] [address] Lower Extremity Arterial Evaluation Name: TRE THORPE Age: 65 yrs Gender: Male : 1950 Patient Status: Emergency Patient Location: ER Study Date: 05/03/2016 03:06 PM Procedure: A color flow and duplex scan of the lower extremity arteries was performed bilaterally with velocity and waveform anaylsis. Reason For Study: limb ischemia R>L Ordering Physician: MYRIAM TREVINO Performed By: Josselin Brady Measurements and Calculations Right Left CIGAR MACHINE FEEDER PSV 68.4 39.0 cm/sec Prox PFA PSV -62.5 55.0 cm/sec Dist SFA PSV -13.6 -11.2 cm/sec Prox Pop A PSV 11.4 cm/sec Dist Pop A PSV -13.8 11.6 cm/sec Dist STEWART PSV 7.3 cm/sec Dist SURGEON/PRESIDENT PSV 7.9 cm/sec Chip Pedis PSV 17.1 cm/sec Right Side Arterial Evaluation Normal velocity, biphasic waveform in the Common Femoral artery Occluded Femoral. Monophasic flow in the Popliteal. No discernable flow in the infrageniculate vessels. The ankle-brachial index was not done. 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 With very severe sequential disease. DVT is present in the Popliteal vein. Left Side Arterial Evaluation Normal velocity, biphasic waveform in the Common Femoral artery Occluded Femoral. Monophasic flow to the infrageniculate vessels. The ankle-brachial index was not done. 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 Critical Findings Discussed with Dr Trevino at about 1630. The patient is being transferred for vascular care. Interpretation Summary Severe hemodynamically significant lesions in the bilateral lower extremities, on duplex imaging, at rest. Flow on the right is not discernable at the foot. There is Deep Venous thrombosis in the Popliteal ant Posterior Tibial veins. : MYRIAM TREVINO > Dariusz Walker
[2016-05-03 23:10] LABS: PROTHROMBIN TIME 20.2 SEC (11.4-15.4)
[2016-05-03 23:46] LABS: HEMATOCRIT 27.7 % (37.9-51.0); HGB HCT DIFFERENCE -0.7; MEAN CORPUSCULAR HEMOGLOBIN 32.3 pg (27.0-33.4); MEAN CORPUSCULAR HGB CONC 32.7 g/dL (32.0-36.0); MEAN CORPUSCULAR VOLUME 99 fl (80-97); RED CELL DISTRIBUTION WIDTH 14.8 % (11.5-14.0); WHITE BLOOD COUNT 15.7 10^3/uL (4.0-10.5)
[2016-05-03 23:52] LABS: BASOPHILS % (MANUAL) 0 % (0-2); EOSINOPHILS % (MANUAL) 0 % (0-6); TOTAL CELLS COUNTED 100
[2016-05-03 23:53] LABS: ANISOCYTOSIS SLIGHT; BAND NEUTROPHILS % (MANUAL) 10 % (3-5); BURR CELLS SLIGHT; LYMPHOCYTES % (MANUAL) 1 % (13-45); OVALOCYTES SLIGHT; POIKILOCYTOSIS SLIGHT; SCHISTOCYTES SLIGHT; TOXIC GRANULATION SLIGHT
[2016-05-03 23:55] LABS: PARTIAL THROMBOPLASTIN TIME > 134.0 SEC (23.5-35.8)
[2016-05-04] MEDS ORDERED: DOPAMINE HCL/DEXTROSE 5%-WATER 250 ML IV PRN (00:06)
[2016-05-04] MEDS ORDERED: FENTANYL CITRATE INJ/PF 100 MCG/2 ML AMPUL IV ONE (00:06)
[2016-05-04] MEDS ORDERED: CEFEPIME 2 GM/D5W RTU 50 ML IV ONE (00:23)
[2016-05-04] MEDS ORDERED: VANCOMYCIN HCL INJ 1000 MG VIAL IV ONE (00:24)
[2016-05-04 00:58] VITALS: BP 87/64
== END 2016-05-04 01:23 | disposition left against medical advice (07) ==
LOC: ER 10:47
PROC: 06HM33Z Insertion of Infusion Device into Right Femoral Vein, Percutaneous Approach (ICD-10-PCS; principal; 2016-05-03)
DX: F10.20 Alcohol dependence, uncomplicated (principal); N17.9 Acute kidney failure, unspecified; I99.8 Other disorder of circulatory system; I10 Essential (primary) hypertension; R53.1 Weakness; K59.00 Constipation, unspecified; F17.200 Nicotine dependence, unspecified, uncomplicated; Z88.6 Allergy status to analgesic agent
CPT/HCPCS: 36556; 99284; 99285; 96361; 96375; 96365 ×2; 96366 ×2; 96368; 36415 ×2; 87040; 80307; 82550; 83690; 83735 ×2; 85025 ×2; 85610 ×2; 85730 ×2; 82272; 80048; 80053; 81001; 83605; 93925 ×2; 71010; C1751; J1644 ×3; J0610; J1265; J3010; J7030

== ENCOUNTER 2016-05-04 03:34 | Emergency (ER) | payer MEDICARE ==
[2016-05-04] MEDS ORDERED: HEPARIN SODIUM,PORCINE/D5W 250 ML IV PRN (04:17)
[2016-05-04] MEDS ORDERED: DOPAMINE HCL/DEXTROSE 5%-WATER 250 ML IV PRN (04:19)
--- NOTE | 2016-05-04 04:25 | ER Document Report ---
ED General - General Chief Complaint: General Weakness Stated Complaint: FEVER Notes: Patient is a 65-year-old male who was just seen in the ER a few hours ago. He has ischemia to both lower extremities. His Coumadin to be transferred to [facility]. Patient left AMA despite being hypotensive and unwell appearing. Patient went to the hospital waiting room. He then checked back in because he is feeling worse. He now is agreeable to transfer. No new complaints. Upon triage patient is hypothermic however we are obtaining a rectal temp see if this is accurate being that the patient is not confused or altered vision would expect with a temp of 91.3. I suspect his temp was not correct. Patient is hypotensive. Patient does have history of alcoholism. His initial presenting complaints earlier today was of wanting help with alcoholism and weakness. He drinks proximal and one to 2 quarts of wine per day. He's been drinking for over 25 years. TRAVEL OUTSIDE OF THE [place] IN LAST 30 DAYS: No - Related Data Allergies/Adverse Reactions: aspirin Adverse Reaction (Verified 05/03/16 11:26) GI distress codeine Adverse Reaction (Verified 05/03/16 11:26) Syncope Past Medical History - Social History Smoking Status: Never Smoker Chew tobacco use (# tins/day): No Frequency of alcohol use: None Drug Abuse: None Family History: Reviewed & Not Pertinent Patient has suicidal ideation: No Patient has homicidal ideation: No - Past Medical History Cardiac Medical History: Reports: Hx Hypertension Denies: Hx Congestive Heart Failure, Hx DVT, Hx Heart Attack, Hx Hypercholesterolemia, Hx Pulmonary Embolism Pulmonary Medical History: Reports: Hx Pneumonia Denies: Hx Asthma, Hx COPD Endocrine Medical History: Denies: Hx Diabetes Mellitus Type 1, Hx Diabetes Mellitus Type 2, Hx Hyperthyroidism, Hx Hypothyroidism Renal/ Medical History: Denies: Hx Peritoneal Dialysis GI Medical History: Reports: Hx Gastritis Musculoskeltal Medical History: Denies Hx Arthritis Skin Medical History: Denies Hx Eczema, Denies Hx Psoriasis Psychiatric Medical History: Denies: Hx Depression Past Surgical History: Reports: Hx Appendectomy, Hx Herniorrhaphy Review of Systems - Review of Systems Notes: My Normal Review Basic REVIEW OF SYSTEMS: CONSTITUTIONAL : Denies fever, chills, or sweats. Denies recent illness. EENT: Denies eye, ear, throat, or mouth pain or symptoms. Denies nasal or sinus congestion. CARDIOVASCULAR: Denies chest pain. RESPIRATORY: Denies cough, cold, or chest congestion. Denies shortness of breath, difficulty breathing, or wheezing. GASTROINTESTINAL: Denies abdominal pain. Denies nausea, vomiting, or diarrhea. Denies constipation. Last BM: MUSCULOSKELETAL: Bilateral leg ischemia SKIN: Denies rash or skin lesions. NEUROLOGICAL: Denies altered mental status or loss of consciousness. Denies headache. Denies weakness or paralysis or loss of use of either side. Denies problems with gait or speech. Denies sensory or motor loss. ALL OTHER SYSTEMS REVIEWED AND NEGATIVE. Physical Exam - Vital signs Vitals: Temp Pulse Resp BP Pulse Ox 91.3 F L 109 H 18 101/68 70 L 05/04/16 03:43 05/04/16 03:43 05/04/16 03:43 05/04/16 03:43 05/04/16 03:43 - Notes Notes: General Appearance: alert, cooperative, no acute distress, no obvious discomfort. Very thin. Vitals: reviewed, See vital signs table. Head: no swelling or tenderness to the head Eyes: PERRL, EOMI, Conjuctiva clear Mouth: No decreasd moisture Throat: No tonsillar inflammation, No airway obstruction, No lymphadenopathy Neck: Supple, no neck tenderness, No thyromegaly Lungs: No wheezing, No rales, No rhonci, No accessory muscle use, good air exchange bilaterally. Heart: Tachycardic rate, Regular rythm, No murmur, no rub Abdomen: Normal BS, soft, No rigidity, No abdominal tenderness, No guarding, no rebound, no abdominal masses, no organomegaly Extremities: strength 5/5 in all extremities, absent pulses in bilateral feet. Feet are very pale appearing with purple discoloration to the toes. Findings consistent with severe arterial insufficiency, no swelling or tenderness in the extremities, 2+ bilateral lower extremity edema. Skin: Skin tear on left bicep. Neuro: speech clear, oriented x 3, normal affect, responds appropriately to questions. Course - Vital Signs Vital signs: Temp Pulse Resp BP Pulse Ox 96.4 F L 109 H 18 104/71 100 05/04/16 06:33 05/04/16 03:43 05/04/16 06:33 05/04/16 06:33 05/04/16 06:33 - Laboratory Result Diagrams: 05/04/16 04:25 05/04/16 04:25 Laboratory results interpreted by me: 05/04/16 05/04/16 05/04/16 04:25 04:25 04:25 WBC 20.9 H RBC 3.22 L Hgb 10.4 L Hct 32.4 L MCV 101 H RDW 14.9 H Plt Count 107 L Seg Neuts % (Manual) 90 H Lymphocytes % (Manual) 6 L Monocytes % (Manual) 1 L Abs Neuts (Manual) 19.4 H PT 17.4 H APTT 38.2 H Chloride 113 H Carbon Dioxide 16 L BUN 26 H Est GFR (Non-Af Amer) 59 L Calcium 7.0 L* - Transfer of Care Notes: 05/04/16 04:48 I called back to [facility] to make him aware that the patient has checked back into the ER and still needs transfer. The transfer center did speak with Dr. Jarvis, switchboard inspector at [facility], who agrees to accept the patient again. They currently have no beds and therefore he will be placed on a waiting list. 05/04/16 05:19 Patient's blood pressure since increasing with the increase of his body. Will wean him off the dopamine. Hopefully we can wean this completely off. I will have the nurse place a core temp Richardson catheter to make sure that we are monitoring his temperature properly. We did receive a phone call from [facility] and they now have a bed available. 05/04/16 07:43 Patient's blood pressure continues to run in the 90s systolically over the 60s also a quick. His mean arterial pressures above 65. We will continue to hold the dopamine unless his blood pressure starts to decrease again. Patient continues to be stable and we are awaiting transfer which we are told should arrive around 10 AM. Discharge - Discharge Clinical Impression: Hypocalcemia, Alcohol abuse, Arterial insufficiency of lower extremity Hypotension Qualifiers: Hypotension type: unspecified hypotension type Qualified Code(s): I95.9 - Hypotension, unspecified Hypothermia Qualifiers: Encounter type: initial encounter Qualified Code(s): T68.XXXA - Hypothermia, initial encounter Condition: Stable Disposition: PSYCHIATRIC HOSPITAL Referrals: EMILY REAGAN [Primary Care Provider] - Follow up as needed
[2016-05-04 04:45] LABS: PROTHROMBIN TIME 17.4 SEC (11.4-15.4)
[2016-05-04 04:46] LABS: PARTIAL THROMBOPLASTIN TIME 38.2 SEC (23.5-35.8)
[2016-05-04 04:53] LABS: ANION GAP 11 (5-19); BLOOD UREA NITROGEN 26 mg/dL (7-20); CARBON DIOXIDE 16 mmol/L (22-30); CHLORIDE 113 mmol/L (98-107); CREATININE RESULT 1.23 mg/dL (0.52-1.25); GLUCOSE 108 mg/dL (75-110); SODIUM 139.5 mmol/L (137-145)
[2016-05-04] MEDS ORDERED: LIDOCAINE 2% URO-JET 5 ML KIT MM ONE (05:14)
[2016-05-04 05:18] LABS: HEMATOCRIT 32.4 % (37.9-51.0); HEMOGLOBIN 10.4 g/dL (13.5-17.0); HGB HCT DIFFERENCE -1.2; MEAN CORPUSCULAR HEMOGLOBIN 32.3 pg (27.0-33.4); MEAN CORPUSCULAR HGB CONC 32.2 g/dL (32.0-36.0); MEAN CORPUSCULAR VOLUME 101 fl (80-97); RED BLOOD COUNT 3.22 10^6/uL (4.35-5.55); RED CELL DISTRIBUTION WIDTH 14.9 % (11.5-14.0); WHITE BLOOD COUNT 20.9 10^3/uL (4.0-10.5)
[2016-05-04 05:21] LABS: BAND NEUTROPHILS % (MANUAL) 3 % (3-5); BASOPHILS % (MANUAL) 0 % (0-2); EOSINOPHILS % (MANUAL) 0 % (0-6); LYMPHOCYTES % (MANUAL) 6 % (13-45); TOTAL CELLS COUNTED 100; TOXIC GRANULATION SLIGHT
[2016-05-04 05:22] LABS: ANISOCYTOSIS SLIGHT; BURR CELLS SLIGHT; OVALOCYTES SLIGHT; POIKILOCYTOSIS SLIGHT; POLYCHROMASIA SLIGHT; SCHISTOCYTES SLIGHT
[2016-05-04] MEDS ORDERED: CALCIUM GLUCONATE 1000 MG/10 ML INJ IV ONE (05:31)
[2016-05-04 08:51] LABS: APPEARANCE,URINE SLIGHTLY-CLOUDY; BILIRUBIN,URINE NEGATIVE (NEGATIVE); GLUCOSE, URINE NEGATIVE (NEGATIVE); KETONES,URINE NEGATIVE (NEGATIVE); LEUKOCYTE ESTERASE,URINE NEGATIVE (NEGATIVE); NITRITE,URINE NEGATIVE (NEGATIVE); PROTEIN,URINE NEGATIVE (NEGATIVE); URINE SPECIFIC GRAVITY 1.017; UROBILINOGEN,URINE NEGATIVE mg/dL (<2.0)
[2016-05-04 11:26] VITALS: BP 108/55
== END 2016-05-04 11:25 | disposition short-term general hospital (02) ==
LOC: ER 03:34
DX: E83.51 Hypocalcemia (principal); F10.10 Alcohol abuse, uncomplicated; R68.0 Hypothermia, not associated with low environmental temperature; I77.1 Stricture of artery; I95.9 Hypotension, unspecified; R53.1 Weakness; Z88.6 Allergy status to analgesic agent; I10 Essential (primary) hypertension
CPT/HCPCS: 99284; 96365; 96366; 96368; 36415; 83735; 85025; 85610; 85730; 80048; 81001; J1644; J0610; J1265